=== PATIENT | female | born 1955 ===

== ENCOUNTER → 2025-09-09 | Day surgery (SDC) | payer OTHER ==
[2025-09-07 09:30] VITALS: BP 130/83
[2025-09-07 10:52] LABS: URINE APPEARANCE Clear; URINE BILIRRUBIN Negative (NEGATIVE); URINE BLOOD Negative; URINE COLOR Yellow; URINE GLUCOSE Negative (NEGATIVE); URINE KETONE Negative (NEGATIVE); URINE LEUKOCYTE Trace; URINE NITRATE Negative; URINE PROTEIN Negative (NEGATIVE); URINE UROBILINOGEN 0.2 E.U./dl
[2025-09-07 10:53] LABS: BASO % 1.3 % (0.1-1.2); EOS # 0.26 (0.04-0.54); EOS % 4.1 % (0.7-7.0); LYMPH # 2.69 (1.18-3.74); LYMPH % 42.1 % (19.3-53.1); MEAN PLATELET VOLUME 9.30 fl (9.4-12.4); MONO # 0.37 (0.24-0.82); MONO % 5.8 % (4.7-12.5); NEUT # 2.97 (1.56-6.13); NEUT % 46.4 % (34.0-71.1); RED CELL DISTRIBUTION WIDTH 13.8 % (11.6-14.4)
[2025-09-07 10:56] LABS: URINE BACTERIA 184.7 uL (0.0-1933); URINE EPITHELIAL CELLS 16.8 uL (0.0-38.8); URINE RBC 3.8 uL (0.0-20.8); URINE WBC 9.8 uL (0.0-23.2)
[2025-09-07 11:20] LABS: INR 0.99
[2025-09-07 11:23] LABS: URINE CAST 0.00 uL (0.0-1.40)
[2025-09-07 11:39] LABS: ALT/SGPT 28.0 U/L (12-78); AST/SGOT 16.0 U/L (15-37); BILIRUBIN TOTAL 0.46 mg/dL (0.3-1.2); BUN CREA RATIO 23.0 (7.0-25.0); CREATININE SERUM 0.62 mg/dL (0.55-1.02); GFR 95.16; GLOBULINA 3.3 G/DL (2.4-3.5); GLUCOSE FASTING 102.0 mg/dL (65-100); OSMOLALITY SERUM 289.0 MOSM/KG (275-295)
[~2025-09-09] VITALS: Ht 160 cm; Wt 72.6 kg
[~2025-09-09] MED LIST: CEFAZOLIN SODIUM 1,000 MG VIAL ONE; NORVASC5 MG PO; SUGAMMADEX SODIUM 200 MG/2 ML VIAL IV ONE; TIMOLOL MALEATE5 M3 OP
== END | disposition home or self-care (01) ==
LOC: ADM 09-07 08:45 → CIR.AMB 06:00
PROVIDERS: ATTEND Surgery
DX: K81.1 Chronic cholecystitis (principal)